=== PATIENT | female | born 1985 | race Caucasian/White ===

== ENCOUNTER 2018-09-17 05:41 | Inpatient (IN) | payer BC ==
[2018-09-17] MEDS ORDERED: MISOPROSTOL 200 MCG TAB PR ×2 (06:30→14:30)
[2018-09-17] MEDS ORDERED: OXYTOCIN 30 UNITS/LR 500 ML IV ×2 (06:30→14:30)
[2018-09-17] MEDS ORDERED: METHYLERGONOVINE 0.2 MG INJ IM ×2 (06:30→14:30)
[2018-09-17] MEDS ORDERED: CARBOPROST 250 MCG INJ IM ×2 (06:30→14:30)
[2018-09-17 06:35] LABS: ADD MAN DIFF? NO
[2018-09-17 06:37] LABS: WHITE BLOOD COUNT 9.6 10^3/ul (4.8-10.8)
[2018-09-17 06:37] LABS: BASOPHILS % 0.2 % (0.0-2.0); EOSINOPHILS # 0.2 10^3/ul (0.0-0.5); EOSINOPHILS % 1.8 % (0.0-7.0); HEMATOCRIT 33.4 % (37.0-47.0); HEMOGLOBIN 10.6 g/dl (12.0-16.0); LYMPHOCYTES # 1.8 10^3/ul (0.8-2.9); LYMPHOCYTES % 18.2 % (15.0-51.0); MEAN CORPUSCULAR HEMOGLOBIN 27.9 pg (29.0-33.0); MEAN CORPUSCULAR HGB CONC 31.7 g/dl (32.0-37.0); MEAN CORPUSCULAR VOLUME 87.9 fl (82.0-101.0); MEAN PLATELET VOLUME 11.9 fl (7.4-10.4); MONOCYTE # 0.5 10^3/ul (0.3-0.9); MONOCYTES % 5.6 % (0.0-11.0); NEUTROPHILS % 73.1 % (39.0-77.0); PLATELET COUNT 203 10^3/UL (140-415); RED CELL DISTRIBUTION WIDTH 15.5 % (11.5-14.5)
[2018-09-17] MEDS: AZITHROMYCIN 500MG/NS (PMX) 250 ML IV (06:55)
[2018-09-17] MEDS: LACTATED RINGER'S 1,000 ML IV (06:55)
[2018-09-17 06:58] LABS: INR 0.89; PROTIME 12.1 Sec (11.9-14.9); PT RATIO 0.9
[2018-09-17 06:59] LABS: PARTIAL THROMBOPLASTIN TIME 28.3 Sec (23.0-35.0)
[2018-09-17 07:36] LABS: HEPATITIS B SURFACE ANTIGEN NEGATIVE (NEGATIVE)
[2018-09-17] MEDS: CITRIC ACID/NA CITRATE 30 ML CUP PO (09:33)
[2018-09-17] MEDS: ONDANSETRON 4 MG INJ IV (09:34)
[2018-09-17] MEDS ORDERED: morphine SULFATE/PF (10 MG/10 ML) INJ (10:05)
[2018-09-17] MEDS ORDERED: OXYTOCIN 10 UNIT INJ (10:05)
[2018-09-17] MEDS ORDERED: PHENYLephrine (100 MCG/ML) 10ML SYG (10:05)
[2018-09-17] MEDS ORDERED: NALOXONE (0.4 MG/ML) INJ IV (10:30)
[2018-09-17] MEDS ORDERED: HYDROCODONE/APAP (5/325) TAB PO (10:30)
[2018-09-17] MEDS ORDERED: morphine 2 MG INJ IV ×2 (10:30)
[2018-09-17] MEDS ORDERED: NALBUPHINE HCL (10 MG/1 ML) INJ IV (10:30)
[2018-09-17] MEDS ORDERED: HYDROmorphONE 0.5 MG/0.5 ML SYG IV ×2 (10:30)
[2018-09-17] MEDS ORDERED: ACETAMINOPHEN 500 MG TAB PO (10:30)
[2018-09-17] MEDS ORDERED: ONDANSETRON 4 MG INJ IV (10:30)
[2018-09-17] MEDS ORDERED: KETOROLAC 30 MG INJ IV (10:30)
[2018-09-17] MEDS ORDERED: KETOROLAC 30 MG INJ (10:34)
[2018-09-17] MEDS ORDERED: METOCLOPRAMIDE 10 MG INJ (10:34)
[2018-09-17] MEDS ORDERED: DEXAMETHASONE 4 MG/ML 1 ML INJ (10:34)
[2018-09-17] MEDS: OXYTOCIN 30 UNITS/LR 500 ML IV ×3 (12:03→14:11)
[2018-09-17] MEDS: CEFAZOLIN 3 GM in DEXTROSE 5% 100 ML IV (12:29)
[2018-09-17] MEDS: DEXTROSE 5%-LR 1,000 ML IV ×2 (14:11→17:26)
[2018-09-17] MEDS ORDERED: MAGNESIUM HYDROXIDE 30ML CUP PO (14:30)
[2018-09-17] MEDS ORDERED: METHYLERGONOVINE 0.2 MG TAB PO (14:30)
[2018-09-17] MEDS ORDERED: LANOLIN HPA 1 PKT TOP (14:30)
[2018-09-17 16:24] LABS: RAPID PLASMA REAGIN NONREACTIVE (NR)
[2018-09-17] MEDS: DIPHENHYDRAMINE 50 MG INJ IV (16:34)
[2018-09-17] MEDS: SENNA/DOCUSATE NA (8.6MG/50MG) TAB PO (21:08)
[2018-09-18] MEDS: DEXTROSE 5%-LR 1,000 ML IV (00:58)
[2018-09-18 07:21] LABS: ADD MAN DIFF? NO
[2018-09-18 07:26] LABS: BASOPHILS % 0.2 % (0.0-2.0); EOSINOPHILS # 0.1 10^3/ul (0.0-0.5); EOSINOPHILS % 0.9 % (0.0-7.0); HEMATOCRIT 31.9 % (37.0-47.0); LYMPHOCYTES # 1.5 10^3/ul (0.8-2.9); LYMPHOCYTES % 13.5 % (15.0-51.0); MEAN CORPUSCULAR HEMOGLOBIN 27.6 pg (29.0-33.0); MEAN CORPUSCULAR HGB CONC 31.3 g/dl (32.0-37.0); MEAN CORPUSCULAR VOLUME 88.1 fl (82.0-101.0); MEAN PLATELET VOLUME 11.9 fl (7.4-10.4); MONOCYTE # 0.8 10^3/ul (0.3-0.9); NEUTROPHIL # 8.9 10^3/ul (1.6-7.5); NEUTROPHILS % 77.4 % (39.0-77.0); PLATELET COUNT 185 10^3/UL (140-415); RED BLOOD COUNT 3.62 10^6/ul (4.20-5.40); RED CELL DISTRIBUTION WIDTH 15.6 % (11.5-14.5)
[2018-09-18 07:26] LABS: WHITE BLOOD COUNT 11.4 10^3/ul (4.8-10.8)
[2018-09-18] MEDS: DIPHTH/TET/ACEL PERTUSS (ADULT) 0.5 ML VIAL IM* (07:45)
[2018-09-18] MEDS: LEVOTHYROXINE 100 MCG TAB PO (07:51)
[2018-09-18] MEDS: ESCITALOPRAM 10 MG TAB PO (09:36)
[2018-09-18] MEDS: LANSOPRAZOLE 15 MG CAP PO (09:36)
[2018-09-18] MEDS: SENNA/DOCUSATE NA (8.6MG/50MG) TAB PO ×2 (09:36→20:36)
[2018-09-18] MEDS ORDERED: HYDROCODONE/APAP (5/325) TAB NGT (11:00)
[2018-09-18] MEDS: IBUPROFEN 800 MG TAB PO ×2 (13:05→21:35)
[2018-09-18] MEDS: HYDROCODONE/APAP (5/325) TAB GTB ×2 (13:05→21:36)
[2018-09-19] MEDS: HYDROCODONE/APAP (5/325) TAB GTB ×3 (05:49→21:59)
[2018-09-19] MEDS: IBUPROFEN 800 MG TAB PO ×3 (05:49→21:59)
[2018-09-19] MEDS: LANSOPRAZOLE 15 MG CAP PO (08:27)
[2018-09-19] MEDS: LEVOTHYROXINE 100 MCG TAB PO (08:27)
[2018-09-19] MEDS: SENNA/DOCUSATE NA (8.6MG/50MG) TAB PO ×2 (08:28→21:16)
[2018-09-19] MEDS: ESCITALOPRAM 10 MG TAB PO (08:28)
[2018-09-20] MEDS: IBUPROFEN 800 MG TAB PO (06:15)
[2018-09-20] MEDS: HYDROCODONE/APAP (5/325) TAB GTB (06:15)
[2018-09-20] MEDS: ESCITALOPRAM 10 MG TAB PO (08:30)
[2018-09-20] MEDS: SENNA/DOCUSATE NA (8.6MG/50MG) TAB PO (08:30)
[2018-09-20] MEDS: LANSOPRAZOLE 15 MG CAP PO (08:30)
[2018-09-20] MEDS: LEVOTHYROXINE 100 MCG TAB PO (08:30)
[2018-09-20] MEDS: MEASLES,MUMPS,RUBELLA VACCINE INJ SC* (09:00)
[2018-09-20] MEDS ORDERED: DIPHTH/TET/ACEL PERTUSS (ADULT) 0.5 ML VIAL IM* (09:00)
== END 2018-09-20 13:36 | disposition home or self-care (01) | DRG 785 ==
LOC: L-D 05:41 → PP1 13:30
PROVIDERS: Obstetrics & Gynecology
PROC: 10D00Z1 Extraction of Products of Conception, Low, Open Approach (ICD-10-PCS; principal; 2018-09-17 07:30)
PROC: 0UL70ZZ Occlusion of Bilateral Fallopian Tubes, Open Approach (ICD-10-PCS; 2018-09-17 07:30)
DX: O65.5 Obstructed labor due to abnormality of maternal pelvic organs (principal); O99.284 Endocrine, nutritional and metabolic diseases complicating childbirth; E03.9 Hypothyroidism, unspecified; O34.211 Maternal care for low transverse scar from previous cesarean delivery; Z3A.39 39 weeks gestation of pregnancy; Z37.0 Single live birth; Z30.2 Encounter for sterilization
CPT/HCPCS: 85025; 85610; 85730; 86592; 86850; 86900; 86901; 87340; 88302; 99464

== ENCOUNTER 2018-11-20 10:19 | Emergency (ER) | payer BC ==
[2018-11-20] MEDS: morphine 4 MG/ML VIAL IV ×2 (11:40→12:10)
[2018-11-20 12:10] LABS: ADD MAN DIFF? NO
[2018-11-20] MEDS: ONDANSETRON 4 MG INJ IV (12:10)
[2018-11-20] MEDS: SOD CHLORIDE 0.9% 1,000 ML IV (12:11)
[2018-11-20 12:13] LABS: BASOPHILS % 0.4 % (0.0-2.0); EOSINOPHILS # 0.1 10^3/ul (0.0-0.5); EOSINOPHILS % 1.1 % (0.0-7.0); HEMATOCRIT 40.4 % (37.0-47.0); LYMPHOCYTES # 1.5 10^3/ul (0.8-2.9); LYMPHOCYTES % 14.7 % (15.0-51.0); MEAN CORPUSCULAR HGB CONC 32.2 g/dl (32.0-37.0); MEAN CORPUSCULAR VOLUME 86.9 fl (82.0-101.0); MEAN PLATELET VOLUME 11.5 fl (7.4-10.4); MONOCYTE # 0.9 10^3/ul (0.3-0.9); MONOCYTES % 8.8 % (0.0-11.0); NEUTROPHIL # 7.6 10^3/ul (1.6-7.5); NEUTROPHILS % 74.6 % (39.0-77.0); PLATELET COUNT 242 10^3/UL (140-415); RED BLOOD COUNT 4.65 10^6/ul (4.20-5.40); RED CELL DISTRIBUTION WIDTH 15.4 % (11.5-14.5)
[2018-11-20 12:13] LABS: WHITE BLOOD COUNT 10.2 10^3/ul (4.8-10.8)
[2018-11-20 12:14] LABS: ADD UMIC NO; UR ASCORBIC ACID NEGATIVE (NEGATIVE); UR BILIRUBIN (Dip) NEGATIVE (NEGATIVE); UR BLOOD (Dip) NEGATIVE (NEGATIVE); UR CLARITY CLEAR (CLEAR); UR COLOR YELLOW (YELLOW); UR GLUCOSE (Dip) NEGATIVE (NEGATIVE); UR KETONES (Dip) NEGATIVE (NEGATIVE); UR LEUKOCYTE ESTERASE (Dip) NEGATIVE Leu/ul (NEGATIVE); UR NITRITE (Dip) NEGATIVE (NEGATIVE); UR TOTAL PROTEIN (Dip) NEGATIVE (NEGATIVE); UR UROBILINOGEN (Dip) NEGATIVE (NEGATIVE)
[2018-11-20 12:31] LABS: ALANINE AMINOTRANSFERASE 106 IU/L (13-69); ALBUMIN 4.5 g/dl (3.3-4.9); ALBUMIN/GLOBULIN RATIO 1.45; ALKALINE PHOSPHATASE 104 IU/L (42-121); ANION GAP 10 (5-13); ASPARTATE AMINO TRANSFERASE 68 IU/L (15-46); BILIRUBIN,INDIRECT 0.8 mg/dl (0-1.1); BILIRUBIN,TOTAL 0.8 mg/dl (0.2-1.3); BLOOD UREA NITROGEN 10 mg/dl (7-20); CALCIUM 9.5 mg/dl (8.4-10.2); CARBON DIOXIDE 27 mmol/L (21-31); CHLORIDE 105 mmol/L (97-110); CREATININE 0.75 mg/dl (0.44-1.00); Estimated GFR > 60 mL/min (>60); GLUCOSE 98 mg/dl (70-220); LIPASE 36 U/L (23-300); POTASSIUM 3.9 mmol/L (3.5-5.1); SODIUM 142 mmol/L (135-144); TOTAL PROTEIN 7.6 g/dl (6.1-8.1)
== END 2018-11-20 13:05 | disposition home or self-care (01) ==
LOC: FTE 10:19
DX: R10.32 Left lower quadrant pain (principal)
CPT/HCPCS: 36415; 80053; 81003; 81025; 83690; 85025; 96361; 96374; 99284-25